=== PATIENT | female | born 1975 | race Caucasian/White ===

== ENCOUNTER → 2016-05-22 | Outpatient (CLI) | payer OTHER ==
[~2016-05-22] MED LIST: AMOX500C5 PO; AZIT250T81 PO; PRED20TA PO
[2016-05-22 10:32] VITALS: BP 118/75
--- NOTE | 2016-05-22 10:33 | Urgent Care T Sheet Gen (E) ---
Intake General Temperature (Fahrenheit): 97.9 Pulse: 96 Blood Pressure Systolic: 118 Blood Pressure Diastolic: 75 Respirations: 20 SPO2: 99 Description of Symptoms Patient presents with sinus pressure, PND and fever since yesterday. Woke up with a 102 fever and took some ibuprofen which reduced it. No cough or chest congestion. History of Present Illness Home Meds Active Scripts Prednisone 20 Mg [id number] Mg PO DAILY #6 TAB Prov:TRISTEN ARBOLEDA 05/22/16 Azithromycin (Zithromax Z-Sujit)6 Tab/Pkt [id number] Mg PO SEE INSTRUCTIONS #6 TAB Ref 0 Day One: Take 2 tablets by mouth Days Two-Five: Take 1 tablet by mouth Prov:TRISTEN ARBOLEDA 05/22/16 Amoxicillin (Amoxil)500 Mg [id number] Mg PO BID Infection #20 CAP Ref 0 Prov:TRISTEN ARBOLEDA 01/07/16 Respiratory Constitutional Symptoms: Fever Malaise EENTM: Nose Congestion Throat pain Respiratory: No symptoms reported Cardiovascular: No symptoms reported Neurological: Headache All Other Systems Reviewed Remaining Systems: All other systems reviewed with negative findings Physical Exam Physical Exam General Appearance: WD/WN No apparent distress Eyes, Ears, Nose, Throat Ex: TMs normal Pharyngeal erythema (PND; cobblestone appearance) Other (red, swollen nasal turbinates with clear, thin nasal drainage ; tender over frontal sinuses.) Neck Exam: Supple Lymphadenopathy Respiratory Exam: Lungs clear Normal breath sounds Cardiovascular Exam: Regular rate, rhythm Departure Urgent Care Impression Impression: Primary Impression: Sinusitis Qualified Code: J01.10 - Acute frontal sinusitis, unspecified Departure Disposition: HOME OR SELF-CARE Condition: Stable Additional Instructions: Even though her symptoms started yesterday and I see no purulent drainage in her nose, I have opted to treat with an antibiotic based on her 102 degree fever. I have started her on a Z-Pack for infection. I have also started her on Prednisone x 3 days. This should help with nasal swelling and lymphadenopathy Rest. Fluids No NSAIDs while on steroid Return as needed Patient understands DC instructions. All questions were answered. Scripts Prednisone 20 Mg [id number] Mg PO DAILY #6 TAB Prov:TRISTEN ARBOLEDA 05/22/16 Azithromycin (Zithromax Z-Sujit)6 Tab/Pkt [id number] Mg PO SEE INSTRUCTIONS #6 TAB Ref 0 Day One: Take 2 tablets by mouth Days Two-Five: Take 1 tablet by mouth Prov:TRISTEN ARBOLEDA 05/22/16 End of report . TRISTEN ARBOLEDA May 22, 2016 10:14
== END ==
LOC: MHUC 10:00
PROVIDERS: ATTEND Physician Assistant
DX: J01.10 Acute frontal sinusitis, unspecified (principal)
CPT/HCPCS: 99213